=== PATIENT | female | born 1955 | race Caucasian/White ===

== ENCOUNTER 2018-11-11 17:40 | Inpatient (IN) | payer OTHER ==
[~2018-11-11] VITALS: Ht 149.9 cm; Wt 49.2 kg
[2018-11-11 18:28] LABS: BASOPHILS # (AUTO) 0.06 x10^3/uL (0-0.1); BASOPHILS % (AUTO) 1 % (0-1); EOSINOPHILS # (AUTO) 0.15 x10^3/uL (0-0.4); EOSINOPHILS % (AUTO) 2 % (1-7); LYMPHOCYTES # (AUTO) 3.35 x10^3/uL (1-3.4); LYMPHOCYTES % (AUTO) 45 % (22-44); MD NO; MEAN CORPUSCULAR HEMOGLOBIN 32.3 pg (27.0-34.8); MEAN CORPUSCULAR HGB CONC 32.8 g/dL (32.4-35.8); MEAN CORPUSCULAR VOLUME 98.4 fL (80-100); MEAN PLATELET VOLUME 9.7 fL (7.4-10.4); MONOCYTES # (AUTO) 0.66 x10^3/uL (0.2-0.8); MONOCYTES % (AUTO) 9 % (2-9); NEUTROPHILS # (AUTO) 3.27 x10^3/uL (1.8-6.8); NEUTROPHILS % (AUTO) 44 % (42-75); PLATELET COUNT 252 x10^3/uL (130-400); RED BLOOD COUNT 4.23 x10^6/uL (3.82-5.3); RED CELL DISTRIBUTION WIDTH 14.5 % (9.6-15.2)
[2018-11-11 18:30] LABS: ALBUMIN 3.7 g/dL (3.4-5.0); ANION GAP 8 mmol/L (5-15); CALCIUM 8.5 mg/dL (8.5-10.1); CHLORIDE 101 mmol/L (98-107)
--- NOTE | 2018-11-11 18:33 | NUR ---
PT PRESENTED TO ED WITH SHORTNESS OF BREATH X 2 MONTHS AND BILATERAL SWELLING FOR A FEW DAYS. PT WITH HX: CHF. PT PLACED ON BP, MANAGER FILM AND CONT. PULSE OXIMETER. ASSESSMENT COMPLETED. CALL LIGHT IN REACH.
[2018-11-11 18:35] LABS: CREATININE 1.11 mg/dL (0.55-1.02); TROPONIN I 0.052 ng/mL (0.000-0.045)
--- NOTE | 2018-11-11 18:56 | NUR ---
REPORT GIVEN TO JAKOB DAVIDSON
[2018-11-11] MEDS ORDERED: FURO20TA3 PO (18:59)
[2018-11-11] MEDS ORDERED: ALBU18HF INH (18:59)
[2018-11-11] MEDS ORDERED: LISI-167 PO (19:00)
[2018-11-11] MEDS ORDERED: METO200T47 PO (19:01)
[2018-11-11] MEDS ORDERED: SIMV20TA3 PO (19:02)
[2018-11-11] MEDS ORDERED: OXYC-307 PO (19:03)
[2018-11-11] MEDS ORDERED: SPIR25TA5 PO (19:04)
[2018-11-11] MEDS ORDERED: DIGO125T10 PO (19:04)
[2018-11-11] MEDS ORDERED: FUROSEMIDE 40 MG/4 ML IV ONE (20:00)
[2018-11-11] MEDS ORDERED: ASPIRIN 81 MG TABLET CHEW ONE (20:09)
--- NOTE | 2018-11-11 20:25 | NUR ---
REPORT GIVEN TO STUART MENDEZ.
[2018-11-11] MEDS ORDERED: ASPIRIN 81 MG TABLET CHEW PO ONE (20:30)
[2018-11-11] MEDS ORDERED: POLYETHYLENE GLYCOL 17 GM PACKET PO PRN (21:00)
[2018-11-11] MEDS ORDERED: ACETAMINOPHEN 325 MG TABLET PO PRN (21:00)
[2018-11-11] MEDS ORDERED: ALBUTEROL SULFATE 2.5 MG/3 ML NPPB SCH (21:00)
[2018-11-11] MEDS ORDERED: ONDANSETRON ODT 4 MG PO PRN (21:00)
[2018-11-11] MEDS ORDERED: BISACODYL 10 MG SUPP PR PRN (21:00)
[2018-11-11] MEDS ORDERED: OXYcodone/APAP 10/325MG TABLET PO SCH (21:00)
[2018-11-11] MEDS: SODIUM CHLORIDE FLUSH 10ML SYR IVF SCH (21:00)
[2018-11-11 21:04] VITALS: BP 98/70
[2018-11-11] MEDS: OXYcodone/APAP 10/325MG TABLET PO PRN (21:23)
[2018-11-11] MEDS: SIMVASTATIN 20 MG TABLET PO SCH (21:23)
[2018-11-12 00:47] LABS: TROPONIN I 0.041 ng/mL (0.000-0.045)
[2018-11-12 01:13] VITALS: BP 98/60
[2018-11-12 06:02] LABS: BASOPHILS # (AUTO) 0.04 x10^3/uL (0-0.1); BASOPHILS % (AUTO) 1 % (0-1); EOSINOPHILS # (AUTO) 0.14 x10^3/uL (0-0.4); EOSINOPHILS % (AUTO) 3 % (1-7); LYMPHOCYTES # (AUTO) 2.22 x10^3/uL (1-3.4); LYMPHOCYTES % (AUTO) 45 % (22-44); MD NO; MEAN CORPUSCULAR HEMOGLOBIN 32.3 pg (27.0-34.8); MEAN CORPUSCULAR HGB CONC 32.7 g/dL (32.4-35.8); MEAN CORPUSCULAR VOLUME 98.5 fL (80-100); MEAN PLATELET VOLUME 9.5 fL (7.4-10.4); MONOCYTES # (AUTO) 0.45 x10^3/uL (0.2-0.8); MONOCYTES % (AUTO) 9 % (2-9); NEUTROPHILS # (AUTO) 2.14 x10^3/uL (1.8-6.8); NEUTROPHILS % (AUTO) 43 % (42-75); PLATELET COUNT 180 x10^3/uL (130-400); RED BLOOD COUNT 3.98 x10^6/uL (3.82-5.3); RED CELL DISTRIBUTION WIDTH 14.4 % (9.6-15.2)
[2018-11-12 06:07] LABS: CHLORIDE 105 mmol/L (98-107)
[2018-11-12 06:25] LABS: ALANINE AMINOTRANSFERASE 30 U/L (12-78); ALBUMIN 3.1 g/dL (3.4-5.0); ALKALINE PHOSPHATASE 93 U/L (45-117); ANION GAP 5 mmol/L (5-15); BILIRUBIN,TOTAL 0.6 mg/dL (0.2-1.0); CALCIUM 8.3 mg/dL (8.5-10.1); TROPONIN I 0.045 ng/mL (0.000-0.045)
[2018-11-12] MEDS: ALBUTEROL SULFATE 2.5 MG/3 ML NPPB SCH ×4 (07:11→18:40)
[2018-11-12 07:55] VITALS: BP 130/94
[2018-11-12] MEDS ORDERED: APIX5TAB PO (08:22)
[2018-11-12] MEDS: OXYcodone/APAP 10/325MG TABLET PO PRN ×3 (08:33→20:18)
[2018-11-12] MEDS: SODIUM CHLORIDE FLUSH 10ML SYR IVF SCH ×2 (08:33→20:30)
[2018-11-12] MEDS: FUROSEMIDE 20 MG/2 ML IV SCH ×2 (08:33→17:06)
[2018-11-12] MEDS: DIGOXIN 0.125 MG TABLET PO SCH (08:34)
[2018-11-12] MEDS: LISINOPRIL 20 MG TABLET PO SCH (08:34)
[2018-11-12] MEDS: SPIRONOLACTONE 25 MG TABLET PO SCH (08:34)
[2018-11-12] MEDS: SENNA/DOCUSATE TABLET PO SCH (08:34)
[2018-11-12] MEDS: METOPROLOL SUCCINATE 100 MG TAB.ER.24H PO SCH (08:34)
[2018-11-12] MEDS: APIXABAN 5 MG TABLET PO SCH ×2 (09:33→20:18)
[2018-11-12 13:09] VITALS: BP 98/61
[2018-11-12] MEDS ORDERED: HYDR-826 PO (13:11)
[2018-11-12] MEDS: NICOTINE 7 MG/24 HR PATCH.TD24 TD SCH (14:07)
[2018-11-12 18:33] VITALS: BP 100/68
[2018-11-12] MEDS: SIMVASTATIN 20 MG TABLET PO SCH (20:18)
[2018-11-13 01:18] VITALS: BP 116/77
[2018-11-13 05:34] LABS: ANION GAP 7 mmol/L (5-15); CALCIUM 8.3 mg/dL (8.5-10.1); CHLORIDE 103 mmol/L (98-107)
[2018-11-13 05:39] LABS: CREATININE 0.72 mg/dL (0.55-1.02)
[2018-11-13] MEDS: OXYcodone/APAP 10/325MG TABLET PO PRN (06:15)
[2018-11-13] MEDS: ALBUTEROL SULFATE 2.5 MG/3 ML NPPB SCH ×3 (06:20→15:38)
[2018-11-13] MEDS: FUROSEMIDE 20 MG/2 ML IV SCH ×2 (07:30→08:27)
[2018-11-13 07:35] VITALS: BP 105/69
[2018-11-13] MEDS: DIGOXIN 0.125 MG TABLET PO SCH (08:27)
[2018-11-13] MEDS: METOPROLOL SUCCINATE 100 MG TAB.ER.24H PO SCH (08:27)
[2018-11-13] MEDS: SENNA/DOCUSATE TABLET PO SCH (08:27)
[2018-11-13] MEDS: APIXABAN 5 MG TABLET PO SCH (08:27)
[2018-11-13] MEDS: SODIUM CHLORIDE FLUSH 10ML SYR IVF SCH (08:29)
[2018-11-13] MEDS: LISINOPRIL 20 MG TABLET PO SCH (09:00)
[2018-11-13] MEDS: SPIRONOLACTONE 25 MG TABLET PO SCH (12:28)
[2018-11-13] MEDS ORDERED: FUROSEMIDE 40 MG TABLET PO ONE (13:00)
[2018-11-13 13:40] VITALS: BP 153/77
[2018-11-13] MEDS ORDERED: DIGO125T PO (13:40)
[2018-11-13] MEDS: NICOTINE 7 MG/24 HR PATCH.TD24 TD SCH (14:00)
== END 2018-11-13 16:27 | disposition home or self-care (01) | DRG 292 ==
LOC: ED 19:52 → MERGE 19:57 → EDIP 19:57 → 5SO 20:42
PROVIDERS: ADMIT Family Medicine; ATTEND Family Medicine
DX: I11.0 Hypertensive heart disease with heart failure (principal); D68.69 Other thrombophilia; I50.43 Acute on chronic combined systolic (congestive) and diastolic (congestive) heart failure; E78.5 Hyperlipidemia, unspecified; F17.210 Nicotine dependence, cigarettes, uncomplicated; I44.4 Left anterior fascicular block; I48.2 Chronic atrial fibrillation; I25.10 Atherosclerotic heart disease of native coronary artery without angina pectoris; I25.2 Old myocardial infarction; Z79.01 Long term (current) use of anticoagulants; Z82.49 Family history of ischemic heart disease and other diseases of the circulatory system; Z86.711 Personal history of pulmonary embolism
CPT/HCPCS: 36415; 99285; J7613; 71045; 80048; 80053; 80162; 82040; 83735; 83880; 84484; 85025; 93005; 93306; 94640; G0378; J1940; Q0177